=== PATIENT | male | born 1950 | race Caucasian/White ===

== ENCOUNTER 2024-07-26 13:48 | Emergency (ER) | payer MEDICARE, SELFPAY ==
[2024-07-26 13:58] VITALS: BP 108/56
[2024-07-26 14:27] LABS: % Basophils 0.2 % (0-2); % Eosinophils 7.1 % (0-6); % Immature Granulocytes 0.4 % (0-0.5); % Lymphocytes 25.6 % (20.5-51.1); % Monocytes 9.2 % (1.7-9.3); % Neutrophils 57.5 % (42.2-75.2); Absolute Eosinophils 0.6 10^3/uL (0-0.7); Absolute Lymphocytes 2.1 10^3/uL (1.2-3.4); Absolute Monocytes 0.8 10^3/uL (0.1-0.6); Absolute Neutrophils 4.8 10^3/uL (1.4-6.5); Hematocrit 38.7 % (39.0-52.0); Hemoglobin 13.2 g/dL (13.0-18.0); Mean Corp Hgb Conc. 34.1 g/dL (33.0-37.0); Mean Corpuscular Hgb 30.7 pg (27.0-31.0); Mean Platelet Volume 10.2 fL (7.4-10.4); Nucleated Red Blood Cells % 0 % (-); Platelet Count 218 10^3/uL (130-400); Red Cell Dist. Width 14.1 % (11.5-14.5); White Blood Cell Count 8.3 10^3/uL (4.8-10.8)
[2024-07-26 14:46] LABS: COVID-19 Antigen Negative (Negative)
[2024-07-26 14:47] LABS: ALT (SGPT) 24 U/L (0-50); AST (SGOT) 28 U/L (17-59); Albumin 4.3 g/dl (3.5-5.0); Alkaline Phosphatase 101 U/L (38-126); Blood Urea Nitrogen 26 mg/dl (9-20); Calcium 9.6 mg/dl (8.4-10.2); Carbon Dioxide 24 mmol/L (22-30); Chloride 100 mmol/L (98-107); Glucose 177 mg/dl (70-99); Potassium 4.2 mmol/L (3.5-5.1); Sodium 140 mmol/L (135-145); Total Bilirubin 1.4 mg/dl (0.2-1.3); Total Protein 6.5 g/dl (6.3-8.2); eGFR > 60.00
[2024-07-26 14:59] LABS: NT-proBNP 2010 pg/ml; Troponin I 0.034 ng/ml
[2024-07-26 16:59] VITALS: BP 126/79
[2024-07-26 18:00] VITALS: BP 132/70
--- NOTE | 2024-07-26 18:58 | ED.GENMED ---
History of Present Illness
General
Chief Complaint: Breathing Problem
Source: patient
Exam Limitations: none
Time Seen by Provider: 07/26/24 18:00
Nursing documentation reviewed up to this point in time: agreed with
History of Present Illness
History of Present Illness:
Patient is a 74-year-old male past medical history of CHF CAD, stent, hypertension hyperlipidemia reflux brought by son for evaluation of shortness of breath. Patient has a history of strokes(2 CVAs this summer) and has expressive aphasia. Son
reports patient has had a cough for the past couple days however no fevers no other illness. Today patient had a cough and seemed very short of breath while he was getting out of bed and after eating breakfast today. Son reports on the drive here
however patient and seem back to normal. Patient is unable to give history. Patient is in no acute distress and not hypoxic on my exam nontachypneic.
Patient does have a history of CHF and is on Lasix.
Review of Systems
Review of Systems
Allergies reviewed?: Yes
Unable to obtain full review of systems at this time due to: other (Patient with expressive aphasia)
Other source history: family
All Other Systems: ROS reviewed and negative except as documented in HPI and ROS
Constitutional: Reports no symptoms
Respiratory: Reports cough and trouble breathing (now resolved as per son )
ABD/GI: Reports no symptoms
: Reports no symptoms
Musculoskeletal: Reports no symptoms
Skin: Reports no symptoms
Neurological: Reports no symptoms
Psychiatric: Reports no symptoms
Phy Exam
General Physical Exam
General Presentation: no apparent distress
General age: appears stated age
General Skin: warm and dry
General Habitus: normal
General Mental: alert
General Hydration: appears well hydrated
Cardiovascular Exam
Cardiovascular Exam: regular rate/rhythm, no murmur and normal peripheral pulses
Pulmonary Exam
Pulmonary Exam: lungs clear and no respiratory distress
Neurological Exam
Neurological Exam: alert and other (Chronic expressive aphasia)
Musculoskeletal Exam
Musculoskeletal Exam: full ROM
Skin Exam
Skin Exam: normal color and warm/dry
Psychiatric Exam
Psychiatric Exam: normal mood/affect
Scores
Heart Failure Risk
Heart Failure Risk Score: Not Applicable
Course
Orders/Labs/Results
Orders:
Orders
07/26/24 14:00
Electrocardiogram (*1) Urgent
Reason for Study: Shortness of Breath
CR Chest - 2 Views Urgent
Comment:
Reason For Exam: SOB
07/26/24 14:01
EKG- Treatment ONCE
07/26/24 14:19
COVID-19 Antigen Urgent
Source: Nasal Swab
Complete Blood Count/With Diff Urgent
Comprehensive Metabolic Panel Urgent
NT-proBNP Urgent
Troponin I Urgent
07/26/24 20:08
Troponin I Urgent
07/26/24 20:47
Furosemide [Lasix] 40 mg PO NOW STA
Abnormal Lab Results
07/26/24 07/26/24
14:19 19:10
RBC 4.30 L 10^6/uL
(4.70-6.10)
Hct 38.7 L %
(39.0-52.0)
Absolute Monos (auto) 0.8 H 10^3/uL
(0.1-0.6)
Eosinophils % 7.1 H %
(0-6)
BUN 26 H mg/dl
(9-20)
Glucose 177 H mg/dl
(70-99)
Total Bilirubin 1.4 H mg/dl
(0.2-1.3)
POC Glucose 124 H mg/dl
(70-99)
07/26/24 14:19
07/26/24 14:19
Vital Signs
Initial and Last Documented VS:
Initial Vital Signs
Temp Pulse Resp BP Pulse Ox
98.3 F 78 20 108/56 97
07/26/24 13:58 07/26/24 13:58 07/26/24 13:58 07/26/24 13:58 07/26/24 13:58
Last Documented Vital Signs
Temp Pulse Resp BP Pulse Ox
98.3 F 77 14 157/74 95
07/26/24 13:58 07/26/24 19:55 07/26/24 19:45 07/26/24 19:00 07/26/24 19:55
MDM/Problems Addressed
MDM/Problems Addressed:
Patient is a 74-year-old male who presents to the ER for evaluation of shortness of breath as per son. Son reports patient has had cough for the past several days and today short of breath while getting out of bed and after eating breakfast. Son
reports symptoms seem to subside while driving to the hospital. Patient does have a history of CHF and is on Lasix. He denies any fever or chills. Son reports no lower extremity swelling.
Son is giving full history as patient does have expressive aphasia. Patient presents awake alert no acute distress lungs are clear nontachypneic nonhypoxic 95% on room air. No reports of fevers patient is afebrile here with a normal white count
stable hemoglobin normal creatinine. Trop is 0.034; chest x-ray without any acute pulmonary process.
Though son reports patient had no chest pain with expressive aphasia will repeat troponin and plan to d/c home.
2044: REpeat trop neg . pt in no distress and is well appearing. remains nonhypoxic and nontachypneic.
With history of CHF and proBNP elevated as discussed ED attending patient was given 1 dose of PO Lasix.
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
Chronic conditions affecting care:
chf cva (expressive aphasia)
*Radiology
Radiology exam reviewed: radiology read reviewed
*Pulse Oximetry
Patient hypoxic: no
*EKG
Interpreted by ED Provider?: Yes
Interpretation: abnormal
Heart Rate: 82
Ischemia: non-specific ST changes
*Critical Care Note
Total Time (30-74mins, 75-104mins- exclusive of procedures): Not Applicable
ED Attending Note
-
Portions of this chart may have been created with voice recognition software.� Occasional wrong word or��sound alike� substitutions may have occurred due to the inherent limitations of voice recognition software.
Discharge Plan
Departure
Patient Disposition: Home (Routine Discharge)
Date of Disposition: 07/26/24
Time of Disposition: 20:51
Patient with high blood pressure during this ER visit?: Yes
Condition: Fair
Covid-19: Not Applicable
Discharge Problem:
Dyspnea
Instructions: *PCP/Other Insurance Claims Processor Heart Failure Instructions
Prescriptions:
No Action
clopidogrel 75 MG tablet
75 mg PO DAILY
aspirin 81 MG tablet,delayed release (DR/EC)
81 mg PO HS
metformin 1,000 MG tablet
1,000 mg PO BID@0800,1700
Humulin R U-500 (Conc) Kwikpen 500 UNITS/ML insulin pen
20 - 40 units SC HS
Patient Comments:
SLIDING SCALE
Rx Instructions:
adjusted per blood sugar
Humulin R U-500 (Conc) Kwikpen 500 UNITS/ML insulin pen
70 - 80 units SC DAILY
Patient Comments:
SLIDING SCALE
Rx Instructions:
adjusts per blood sugar, takes later in the morning because he wakes up late
furosemide 40 mg tablet
80 mg PO DAILY
furosemide 40 mg tablet
40 mg PO DAILY@1600
carvedilol 12.5 mg tablet
12.5 mg PO BID
isosorbide mononitrate 30 mg tablet extended release 24 hr
15 mg PO HS
magnesium oxide 400 mg (241.3 mg magnesium) tablet
400 mg PO HS
nitroglycerin 0.4 mg tablet, sublingual
0.4 mg sublingual [id number] PRN (Reason: chest pain)
rosuvastatin 10 mg tablet
10 mg PO HS
lisinopril 20 MG tablet
10 mg PO HS
Farxiga 5 mg Tablet
5 mg PO DAILY
Referrals:
NONE,* [Family Provider] -
Activity Restrictions/Additional Instructions:
As discussed you were given 1 dose of your Lasix here in the ER. Please call cardiology tomorrow to make an appointment as soon as possible. return if any worsening of symptoms including worsening shortness of breath chest pain fever chills or any
further concerns.
Interventions
Interventions:
*Risk Screen - Suicide Last Done: 07/26/24 13:58
*General Assessment Last Done: 07/26/24 13:58
*Neglect/Abuse Screening Last Done: 07/26/24 13:58
ED- Cardiac Assessment Last Done: 07/26/24 18:31
ED- Pulmonary Assessment Last Done: 07/26/24 18:31
Discharge Date and Time
Print Language: AZERI
[2024-07-26 19:00] VITALS: BP 157/74
[2024-07-26 19:12] LABS: Glucose - Point of Care 124 mg/dl (70-99)
[2024-07-26 20:42] LABS: Troponin I 0.034 ng/ml
[2024-07-26] MEDS: LASIX 40 MG PO (20:59)
== END 2024-07-26 21:02 | disposition home or self-care (01) ==
LOC: EMR 13:48
PROVIDERS: Emergency Medicine; Nurse Practitioner; EMERGENCY PHYSICIAN Emergency Medicine
DX: R06.00 Dyspnea, unspecified (principal); I25.10 Atherosclerotic heart disease of native coronary artery without angina pectoris; I11.0 Hypertensive heart disease with heart failure; I50.9 Heart failure, unspecified; E78.5 Hyperlipidemia, unspecified; I69.320 Aphasia following cerebral infarction; K21.9 Gastro-esophageal reflux disease without esophagitis
CPT/HCPCS: 99283; 71046; 80053; 82962; 83880; 84484; 85025; 87811; 93005

== ENCOUNTER 2024-08-08 12:15 | Inpatient (IN) | payer MEDICARE, SELFPAY ==
[2024-08-08] VITALS (8 sets, daily range): BP systolic 118–132; BP diastolic 56–68; BMI 28.9
[2024-08-08 07:26] LABS: Glucose - Point of Care 126 mg/dl (70-99)
[2024-08-08 07:37] LABS: % Basophils 0.5 % (0-2); % Eosinophils 6.8 % (0-6); % Immature Granulocytes 0.3 % (0-0.5); % Lymphocytes 28.3 % (20.5-51.1); % Monocytes 9.5 % (1.7-9.3); % Neutrophils 54.6 % (42.2-75.2); Absolute Eosinophils 0.5 10^3/uL (0-0.7); Absolute Lymphocytes 2.2 10^3/uL (1.2-3.4); Absolute Monocytes 0.7 10^3/uL (0.1-0.6); Absolute Neutrophils 4.2 10^3/uL (1.4-6.5); Hematocrit 40.7 % (39.0-52.0); Hemoglobin 13.4 g/dL (13.0-18.0); Mean Corp Hgb Conc. 32.9 g/dL (33.0-37.0); Mean Corpuscular Hgb 29.8 pg (27.0-31.0); Mean Corpuscular Volume 90.6 fL (80.0-94.0); Mean Platelet Volume 10.3 fL (7.4-10.4); Nucleated Red Blood Cells % 0 % (-); Platelet Count 172 10^3/uL (130-400); Red Blood Cell Count 4.49 10^6/uL (4.70-6.10); Red Cell Dist. Width 13.9 % (11.5-14.5); White Blood Cell Count 7.7 10^3/uL (4.8-10.8)
[2024-08-08] MEDS: OFIRMEV 100 IV (07:49)
[2024-08-08] MEDS: ZOFRAN 4 MG IV (07:49)
--- NOTE | 2024-08-08 07:56 | ED.GENMED ---
History of Present Illness
General
Chief Complaint: Abdominal Pain
Source: patient
Exam Limitations: none
Time Seen by Provider: 08/08/24 07:34
Nursing documentation reviewed up to this point in time: agreed with
History of Present Illness
History of Present Illness:
74-year-old male coming from home with his son who is the primary disability manager, history of CAD status post CABG, CHF, insulin-dependent diabetes, no previous abdominal surgeries complaining of generalized abdominal discomfort over the last week.
Patient apparently had had some constipation so the son reached out to the primary care doctor about 4 days ago and was told to give him MiraLAX once a day which she has done. He has had some firmness to his abdomen. Yesterday he did move his
bowels but it did not seem to improve things. Patient did not eat much yesterday afternoon and then has been more fatigued than usual. He does have some baseline ambulatory dysfunction and memory loss but he seems more lethargic today. He is not
having any fevers or chills. Patient does admit to nausea but no vomiting. He also was here about 10 days ago for cough. Had a chest x-ray at that time which was negative. The son said the cough got better but then about 3 or 4 days ago came
back.
He has never had diverticulitis before. He has not had diarrhea
Past History
Past History
ED Past Medical History: CAD, CVA, GERD, HTN, Hypercholesterolemia and IDDM
ED Past Surgical History: Cardiac (CABG), Orthopedic and Tonsilectomy
Social History
Tobacco: Non-smoker
Alcohol: None
Personal: Single
Living: with family
Review of Systems
Review of Systems
Allergies reviewed?: Yes
All Other Systems: Not applicable
Phy Exam
Physical Exam
Physical Exam:
GENERAL: Alert , weak, generally ill, slightly pale
EYE: pupils equal and reactive
NECK: Supple
ENT: o/p clr, mmm.
CARDIAC: Regular rate and rhythm . Mild edema symmetric
LUNGS: Crackles bilateral bases, occasional cough, no respiratory distress
ABDOMEN: Soft, generalized tenderness, worse in the left lower quadrant, no guarding or rebound, no r/g, no cvat, normal bowel sounds
NEUROLOGICAL: Alert and oriented, no focal neuro deficits
SKIN: Warm and dry, skin intact.
MUSCULOSKELETAL: No edema, well perfused. neg claudy's sign
PSYCH: Normal and appropriate interaction.
Course
Orders/Labs/Results
Orders:
Orders
08/08/24 07:24
CMP [Comprehensive Metabolic Panel] Urgent
Complete Blood Count/With Diff Urgent
08/08/24 07:34
Urinalysis Reflex To Culture Urgent
Date Specimen was Collected: 08/08/24
Time Specimen was Collected: 10:21
Acetaminophen 1000MG/100Ml [Ofirmev] 1,000 mg in 100 ml IV ONCE
Acetaminophen IV Indication:: ED Narcotic Naive Pt-ONCE
Ondansetron Injectable [Zofran] 4 mg IV NOW STA
08/08/24 07:35
CT Abd/Pel (IV only)-DH only Urgent
Comment:
Reason For Exam: lower abd pain, poor appetite, lethargy
08/08/24 07:36
CR Chest - 2 Views Urgent
Comment:
Reason For Exam: cough
08/08/24 07:49
COVID-19 Antigen Urgent
Source: Nasal Swab
Lactic Acid Urgent
Lipase Urgent
08/08/24 08:06
0.9% Sodium Chloride 500 ml [Nss] 500 ml IV BOLUS
08/08/24 10:32
Azithromycin 500 mg/250 ml [Zithromax Infusion] 500 mg in 250 ml IV NOW
CefTRIAXone [Rocephin] 1,000 mg IV NOW STA
Abnormal Lab Results
08/08/24 08/08/24
07:22 07:24
RBC 4.49 L 10^6/uL
(4.70-6.10)
MCHC 32.9 L g/dL
(33.0-37.0)
Absolute Monos (auto) 0.7 H 10^3/uL
(0.1-0.6)
Monocytes % 9.5 H %
(1.7-9.3)
Eosinophils % 6.8 H %
(0-6)
BUN 27 H mg/dl
(9-20)
Glucose 129 H mg/dl
(70-99)
Total Bilirubin 1.8 H mg/dl
(0.2-1.3)
POC Glucose 126 H mg/dl
(70-99)
08/08/24 07:24
08/08/24 07:24
Vital Signs
Initial and Last Documented VS:
Initial Vital Signs
Temp Pulse Resp BP Pulse Ox
98.1 F 78 20 118/62 95
08/08/24 07:17 08/08/24 07:17 08/08/24 07:17 08/08/24 07:17 08/08/24 07:17
Last Documented Vital Signs
Temp Pulse Resp BP Pulse Ox
97.7 F 75 13 118/61 97
08/08/24 08:32 08/08/24 10:15 08/08/24 10:15 08/08/24 10:00 08/08/24 10:33
MDM/Problems Addressed
Differential Diagnosis Includes:
Pneumonia, diverticulitis, colitis, constipation, bowel obstruction
MDM/Problems Addressed:
74-year-old male coming from home, history of CVA with some mild memory issues, some chronic gait dysfunction, CAD status post CABG, insulin-dependent diabetes, who comes in with generalized abdominal pain over the last week or so. No relief with
MiraLAX despite moving his bowels. Patient feels nauseated and has had lack of appetite. He is also had a cough which was there about 2 weeks ago but then got better for period of time before returning. He has not had any known COVID exposures.
There is no fevers. On exam he has some crackles in his lungs with an occasional cough and generalized but worsening left lower quadrant abdominal tenderness. He looks pale and ill-appearing. Will check screening labs, chest x-ray and a CT scan
CT shows some stool bu tno significant findings
cxr indep reviewed is RLL infiltrate
pt desat on RA to 87% good pleth
will admit for iv abx
*Critical Care Note
Total Time (30-74mins, 75-104mins- exclusive of procedures): Not Applicable
ED Attending Note
-
Portions of this chart may have been created with voice recognition software.� Occasional wrong word or��sound alike� substitutions may have occurred due to the inherent limitations of voice recognition software.
Discharge Plan
Departure
Patient Disposition: Admit
Date of Disposition: 08/08/24
Time of Disposition: 10:27
Admit to: Med/Surg
Presentation/result/management discussed w/ accepting MD/DO: Hospitalist
Condition: Fair
Covid-19: Not Applicable
Discharge Problem:
Pneumonia, Acute constipation
Prescriptions:
No Action
aspirin 81 MG tablet,delayed release (DR/EC)
81 mg PO DAILY
metformin 1,000 MG tablet
1,000 mg PO BID@0800,1700
Humulin R U-500 (Conc) Kwikpen 500 UNITS/ML insulin pen
30 units SC HS
furosemide 40 mg tablet
40 mg PO DAILY
magnesium oxide 400 mg (241.3 mg magnesium) tablet
400 mg PO QPM
atorvastatin [Lipitor] 40 mg Tablet
40 mg PO QPM
tamsulosin [Flomax] 0.4 mg Capsule
0.4 mg PO DAILY
cyanocobalamin (vitamin B-12) 1,000 mcg Tablet
1,000 mcg PO DAILY
carvedilol [Coreg] 3.125 mg Tablet
3.125 mg PO BID
sertraline 25 mg Tablet
25 mg PO DAILY
gabapentin 100 mg Capsule
100 mg PO BID
dapagliflozin propanediol [Farxiga] 10 mg Tablet
10 mg PO DAILY
Brilinta 60 mg Tablet
60 mg PO BID
Referrals:
Monalisa Solis, DO [Family Provider] -
Interventions
Interventions:
*Risk Screen - Suicide Last Done: 08/08/24 07:36
*General Assessment Last Done: 08/08/24 07:36
*Neglect/Abuse Screening Last Done: 08/08/24 07:36
*ED COVID-19 Vaccine History Last Done: 08/08/24 09:02
XT-Feyyec-Pjjzoitkks Assessment Last Done: 08/08/24 07:35
Discharge Date and Time
Print Language: ERITREAN
[2024-08-08 08:00] LABS: ALT (SGPT) 22 U/L (0-50); AST (SGOT) 25 U/L (17-59); Albumin 4.1 g/dl (3.5-5.0); Alkaline Phosphatase 96 U/L (38-126); Blood Urea Nitrogen 27 mg/dl (9-20); Calcium 9.4 mg/dl (8.4-10.2); Carbon Dioxide 28 mmol/L (22-30); Chloride 101 mmol/L (98-107); Glucose 129 mg/dl (70-99); Sodium 142 mmol/L (135-145); Total Bilirubin 1.8 mg/dl (0.2-1.3); Total Protein 6.3 g/dl (6.3-8.2); eGFR > 60.00
[2024-08-08] MEDS: NSS 500 IV (08:15)
[2024-08-08 08:20] LABS: COVID-19 Antigen Negative (Negative)
[2024-08-08 08:21] LABS: Lipase 91 U/L (23-300)
[2024-08-08 08:22] LABS: Lactic Acid 1.3 mmol/L (0.7-2.0)
[2024-08-08] MEDS: ROCEPHIN 1000 MG IV (10:47)
[2024-08-08] MEDS: ZITHROMAX INFUSION 250 IV (10:49)
--- NOTE | 2024-08-08 11:43 | HPS.HSE ---
Family Physician
-
Family Physician: Monalisa Solis DO
Chief Complaint
-
abdomen pain, hypoxemia
History of Present Illness
74-year-old male with HFpEF, CAD s/p CABG, IDDM, HTN, HLD, GERD, H/O CVA (April 2024) that is presenting to the ED today with a complaint of generalized abdominal pain over the last week.
The patient's son was at the bedside and provides supplemental history. He is his mother's primary senior java software developer. The patient had constipation recently, the son had reached out to primary care provider about 4 days prior to arrival and he was
recommended to start MiraLAX daily which was performed. His son states yesterday he did move his bowels but he did not see any improvement to the symptoms. Patient was not eating much yesterday, seems more forgetful and fatigued than usual.
Denies any known fevers or chills. Was recently in the ED for cough, was discharged and improved however 3 days ago his cough recurred. X-ray at that time was unremarkable.
Upon arrival to the ED AFVSS. He was placed on 1 L O2 for comfort, SpO2 97 to 98%. ED labs showed total bilirubin 1.8 but were otherwise unremarkable. No leukocytosis was noted. COVID test was negative. CT A/P with IV contrast showed no acute
abnormalities, mild diffuse stool burden within the colon. Chest x-ray showed moderate right basilar airspace opacity concerning for consolidation. He was started on IV Septra azithromycin empirically.
Medical History
Past Medical History
Past Medical History: Reports CAD, CHF, GERD, HTN, Hypercholesterolemia and IDDM
Past Surgical History: Reports Cardiac and Orthopedic
Social History
Tobacco: Non-smoker
Alcohol: None
Drug: None
Living: With Family
Family History
Family History: Not pertinent
Allergies / Home Medications
Allergies reflects when Allergies were last updated in [facility].
Home Medications with original date entered in [facility]
Allergy/Medication List:
Allergies
Allergy/AdvReac Type Severity Reaction Status Date / Time
No Known Allergies Allergy Verified 08/08/24 07:18
Home Medications
aspirin 81 mg tablet,delayed release 81 mg PO DAILY Blood clot prevention/tx 07/13/16
metformin 1,000 mg tablet 1,000 mg PO BID@0800,1700 Diabetes 07/13/16
insulin regular hum U-500 conc 500 unit/mL(3 mL) subcut pen (Humulin R U-500 (Conc) Insulin Kwikpen) 30 units SC HS Diabetes 02/15/19
furosemide 40 mg tablet 40 mg PO DAILY Fluid retention/Swelling 03/05/23
magnesium oxide 400 mg (241.3 mg magnesium) tablet 400 mg PO QPM Supplement 03/05/23
atorvastatin 40 mg tablet (Lipitor) 40 mg PO QPM 08/08/24
carvedilol 3.125 mg tablet (Coreg) 3.125 mg PO BID 08/08/24
cyanocobalamin (vitamin B-12) 1,000 mcg tablet 1,000 mcg PO DAILY 08/08/24
dapagliflozin propanediol 10 mg tablet (Farxiga) 10 mg PO DAILY 08/08/24
gabapentin 100 mg capsule 100 mg PO BID 08/08/24
sertraline 25 mg tablet 25 mg PO DAILY 08/08/24
tamsulosin 0.4 mg capsule (Flomax) 0.4 mg PO DAILY 08/08/24
ticagrelor 60 mg tablet (Brilinta) 60 mg PO BID 08/08/24
Review of Systems
-
A 12 point ROS was completed and negative except as noted: Yes
Constitutional: Reports See HPI and Fatigue
EENT: Reports No Symptoms
Respiratory: Reports See HPI and Cough
Cardiac: Reports No Symptoms
Abdomen/GI: Reports See HPI, Abdominal Pain and Nausea; Denies Vomiting
: Reports No Symptoms
Musculoskeletal: Reports No Symptoms
Skin: Reports No Symptoms
Neurological: Reports No Symptoms
Endocrine: Reports No Symptoms
Hematologic/Lymphatic: Reports No Symptoms
Psych: Reports No Symptoms
Physical Exam
Vital Signs
Vital Signs
Temp Pulse Resp BP Pulse Ox
97.7 F 75 13 118/61 97
08/08/24 08:32 08/08/24 10:15 08/08/24 10:15 08/08/24 10:00 08/08/24 10:33
Physical Exam
General: Well Nourished, No Apparent Distress and Comfortable; No Respiratory Distress
HEENT: NormoCephalic, Anicteric, Moist mucous membranes, Atraumatic and Good Dentition; No Nodules
Respiratory: Rhonchi, Crackles (Right base), Non Labored Respirations and Clear to Percussion; No Wheezes, Rales or Accessory Resp Muscle Use
Cardiac: S1/S2 and Regular Rhythm; No Murmur, Rub, Gallop, Peripheral Edema, JVD or Carotid Bruits
GI: Soft, Non Tender, Non Distended, Normal Bowel Sounds and No Hepatosplenomegaly
Musculoskeletal: No Clubbing, No Cyanosis, No Edema and Other (No gross deformities)
Skin: Warm and Dry; No Rash or Jaundice
Neuro: AO x 3, Nonfocal/grossly intact and Cranial Nerves Intact
Laboratory Results
-
08/08/24 07:24
08/08/24 07:24
Laboratory Results
Lactic Acid 1.3 mmol/L (0.7-2.0) 08/08/24 07:49
Total Bilirubin 1.8 mg/dl (0.2-1.3) H 08/08/24 07:24
AST 25 U/L (17-59) 08/08/24 07:24
ALT 22 U/L (0-50) 08/08/24 07:24
Alkaline Phosphatase 96 U/L (38-126) 08/08/24 07:24
Lipase 91 U/L (23-300) 08/08/24 07:49
Data Reviewed
-
Diagnostic Radiology: Image Personally Visualized and interpreted, Report Reviewed by me, Discussed with Patient and Discussed with Family
CT Scan: Report Reviewed by me, Discussed with Patient and Discussed with Family
Lab Data: Labs Reviewed by me, Discussed with Patient and Discussed with Family
Impression/Plan
-
#Suspected community-acquired pneumonia
#Hypoxemia
-Presented with SpO2 87%, CXR showing signs of right basilar pneumonia
-No leukocytosis or fevers reported, no recorded while in the ED
-Cannot rule out that this is not infectious process such as aspiration
-Will started on empiric IV antibiotics with ceftriaxone and azithromycin
-Exam does show rhonchorous lungs, possible crackles at right lung base
-Currently saturating in the high 90s on 1 L of supplemental oxygen
-Question aspiration
Plan
-Continue with empiric antibiotics for now
-Add on procalcitonin level to ED labs, low threshold to DC
-Will monitor respiratory status closely, SpO2 goal >90%
-Order sputum cultures, defer blood cultures due to lack of SIRS
-Trend CBC and temperature curve
-Speech and swallow eval
#Abdominal pain
-Unclear etiology, may be related to constipation versus gallstone etiology
-CT scan without any acute findings, did show signs of cholelithiasis
-On exam no signs of acute abdomen, seems soft and nontender
-Will monitor closely, serial abdomen exams
-Start standing bowel regimen for constipation
#Chronic HFpEF
-Per history, no TTE on record; GDMT with SGLT2i, not currently on MRA for unclear reason
-Loop diuretic regimen of 40 mg Lasix daily; also on carvedilol for afterload reduction
-Appears euvolemic at this time on current regimen
#CAD s/p CABG
#HLD
-Home medications include carvedilol, high intensity statin, DAPT with aspirin and Brilinta
-Also currently on SGLT2 inhibitor which has benefits and CAD
-No signs of active coronary ischemia at this time
#Insulin-dependent type 2 diabetes this mellitus
-Last hemoglobin A1c 7.2%; C/B diabetic neuropathy
-Current regimen includes Humulin, metformin, gabapentin for neuropathy
-Will hold metformin, transition to sliding scale with Accu-Cheks
-He blood glucose goal 160-200 while in the hospital
#Hypertension
-No known hypertensive systemic disease
-Home medications include carvedilol as first-line and agent
-Blood pressure currently well-controlled
#Anxiety/depression
-Stable on current sertraline read
#BPH
-Stable on tamsulosin 0.4 mg
#vitamin B12 deficient
-Outpatient records show chronic vitamin B12 oral supplement
-Possibly related to chronic metformin use
DVT prophylaxis: Lovenox
Diet: Regular
CODE STATUS: Full code
Disposition: Admit to Med/Surg
I will be admitting Arnu Gilbert to Med/Surg for suspected community-acquired pneumonia with hypoxemia. He is at increased risk for morbidity and mortality due to respiratory compromise from pneumonia. He will require intensive monitoring of his
respiratory status, treatment with IV antibiotics, and a titration off of supplemental oxygen. I have spoken with the ED provider in regards to this patient's care.
[2024-08-08 13:50] LABS: Glucose - Point of Care 106 mg/dl (70-99)
[2024-08-08] MEDS: NSS 1000 IV (13:54)
--- NOTE | 2024-08-08 14:00 | PTOTSP ---
Speech Language Pathology
Pt seen for clinical bedside swallow evaluation. Per son, pt has participated in speech therapy in acute care level, acute rehab level, and home health. Pt recently discharged from home health with plan to bridge to outpatient. P.O. trials of
puree, regular solids, and thin liquids provided. Adequate mastication, bolus formation, and A-P transit noted with no oral residue. Slight wet vocal quality noted at baseline with same noted with P.O. trials. Question whether related to wet
cough reported by son or whether related to aspiration. Pt's son stated he never had a VSE completed as far as he knows. Current CXR shows RLL PNA.
Recommend:
(1) VSE
(2) Continue regular solids/thin liquids pending VSE
(3) Aspiration precautions: sit upright, slow rate
(4) Meds as tolerated
(5) [employer] GOLF COACH to continue to follow
[2024-08-08 14:47] LABS: Procalcitonin < 0.05 ng/ml (0.0-0.25)
[2024-08-08 16:40] LABS: Glucose - Point of Care 110 mg/dl (70-99)
[2024-08-08] MEDS: NOVOLOG FLEXPEN-MODERATE RESISTANCE SC (16:57)
[2024-08-08 17:29] LABS: Troponin I 0.036 ng/ml
[2024-08-08] MEDS: LIPITOR 40 MG PO (17:46)
[2024-08-08] MEDS: MAGNESIUM OXIDE 500 MG PO (17:46)
[2024-08-08] MEDS: LOVENOX 40 MG SC (17:46)
[2024-08-08] MEDS: TYLENOL 650 MG PO (20:39)
[2024-08-08] MEDS: COREG 3.125 MG PO (20:40)
[2024-08-08] MEDS: NEURONTIN 100 MG PO (20:40)
[2024-08-08] MEDS: BRILINTA 60 MG PO (20:40)
[2024-08-08 21:03] LABS: Glucose - Point of Care 157 mg/dl (70-99)
[2024-08-08] MEDS: HUMULIN R U-500 (CONCENTRATED) 30 UNITS SC (21:51)
[2024-08-08 22:02] LABS: Troponin I 0.039 ng/ml
[2024-08-09] VITALS (8 sets, daily range): BP systolic 112–137; BP diastolic 57–69; PULSE 70–71; O2SAT 97; BMI 29.0
[2024-08-09 03:02] LABS: Glucose - Point of Care 77 mg/dl (70-99)
--- NOTE | 2024-08-09 03:06 | PTCARENOTE ---
Pt personal glucose monitor was going off, stated his glucose level was low. Pt felt his glucose was low and requested to get checked. Pt glucose was 77 and orange juice given. Pt did received 30 units of Humulin R U-500.
--- NOTE | 2024-08-09 03:08 | DOWNTIME ---
There was a [employer] [employer] Client Dialysis Biomed Technician Downtime on 08/09/2024 from 0100 to 08/09/2024 at 0300. Downtime documentation of patient's care, including medication administrations, has been reconciled in the electronic record per guidelines. Refer to the
patient's paper chart under the miscellaneous tab to see printed paper medication records and downtime forms.
[2024-08-09] MEDS: TYLENOL 650 MG PO (05:39)
[2024-08-09 06:02] LABS: % Basophils 0.5 % (0-2); % Eosinophils 8.8 % (0-6); % Immature Granulocytes 0.2 % (0-0.5); % Monocytes 11.5 % (1.7-9.3); Absolute Eosinophils 0.5 10^3/uL (0-0.7); Absolute Monocytes 0.7 10^3/uL (0.1-0.6); Absolute Neutrophils 2.9 10^3/uL (1.4-6.5); Hematocrit 36.3 % (39.0-52.0); Mean Corp Hgb Conc. 33.1 g/dL (33.0-37.0); Mean Corpuscular Hgb 29.7 pg (27.0-31.0); Mean Corpuscular Volume 89.9 fL (80.0-94.0); Mean Platelet Volume 10.4 fL (7.4-10.4); Nucleated Red Blood Cells % 0 % (-); Platelet Count 160 10^3/uL (130-400); Red Blood Cell Count 4.04 10^6/uL (4.70-6.10); Red Cell Dist. Width 13.7 % (11.5-14.5); White Blood Cell Count 6.2 10^3/uL (4.8-10.8)
[2024-08-09 06:15] LABS: Troponin I 0.051 ng/ml
[2024-08-09 06:18] LABS: ALT (SGPT) 20 U/L (0-50); AST (SGOT) 23 U/L (17-59); Albumin 3.6 g/dl (3.5-5.0); Alkaline Phosphatase 84 U/L (38-126); Blood Urea Nitrogen 22 mg/dl (9-20); Calcium 8.8 mg/dl (8.4-10.2); Carbon Dioxide 27 mmol/L (22-30); Chloride 105 mmol/L (98-107); Direct Bilirubin 0.2 mg/dl (0.0-0.4); Estimated Creatinine Clearance 74 ml/min; Glucose 92 mg/dl (70-99); Magnesium 2.4 mg/dl (1.6-2.3); Sodium 144 mmol/L (135-145); Total Protein 5.7 g/dl (6.3-8.2); eGFR > 60.00
[2024-08-09 07:51] LABS: Glucose - Point of Care 106 mg/dl (70-99)
[2024-08-09] MEDS: NOVOLOG FLEXPEN-MODERATE RESISTANCE SC ×2 (08:30→17:50)
[2024-08-09] MEDS: ZITHROMAX 500 MG PO (08:57)
[2024-08-09] MEDS: FLOMAX 0.4 MG PO (08:59)
[2024-08-09] MEDS: BRILINTA 60 MG PO ×2 (08:59→19:19)
[2024-08-09] MEDS: VITAMIN B-12 1000 MCG PO (08:59)
[2024-08-09] MEDS: FARXIGA 10 MG PO (08:59)
[2024-08-09] MEDS: SENOKOT-S 1 TABLET PO (08:59)
[2024-08-09] MEDS: ZOLOFT 25 MG PO (08:59)
[2024-08-09] MEDS: LASIX 40 MG PO (09:00)
[2024-08-09] MEDS: COREG 3.125 MG PO ×2 (09:00→19:19)
[2024-08-09] MEDS: NEURONTIN 100 MG PO ×2 (09:00→19:19)
[2024-08-09] MEDS: ASPIR LOW (ENTERIC COATED) 81 MG PO (09:00)
--- NOTE | 2024-08-09 09:00 | PTOTSP ---
Video Swallow Study
Summary: Oral/pharyngeal stages of swallowing within functional limits. No aspiration occurred. Esophageal sweep concerning for esophageal dysphagia (i.e., upper esophageal retention that did not clear with a liquid wash). Patient with known
history of GERD. Consider GI consult.
Recommend:
1. Regular, Thin
2. Medications - as best tolerated
3. Alternate solids/liquids to assist with esophageal clearance, remain upright for at least 30 minutes after PO intake as a reflux precaution
4. GI consult
No further dysphagia therapy with an [employer] warranted. Please reconsult as appropriate.
--- NOTE | 2024-08-09 09:27 | WOUNDNOTE ---
WON RN note: Patient admitted with Pneumonia and acute constipation.
See H&P for complete history. Lives with son.
PMH: IDDM,CHF,CAD,CVA, Pilonidal cyst removal,CABG-stent, HTN,Cellulitis, R hallux amp. by Dr. Rodriguez, neuropathy.
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 Now R toe site is healed, heels are intact. Asked to see patient for stage 2 PI on sacrum. Patient stood up
with assist of RN Jimy, patient used walker. Sacrum is intact, has divot in gluteal cleft from old pilonidal cyst removal, patient confirmed. Site is blanchable red with mild MASD, barrier cream applied by nurse.
Appetite: Good.
Pressure redistribution devices in place: Accumax, patient sitting in chair, air cushion given to patient.
Plan: Recommend continue barrier cream to gluteal cleft. Applied adhesive foams to heels to protect. Air cushion when sitting, patient can take upon discharge. Updated nurse, care plan and will follow as needed.
Note to case management of equipment requested for discharge: None.
[2024-08-09 11:53] LABS: Glucose - Point of Care 179 mg/dl (70-99)
--- NOTE | 2024-08-09 12:10 | W.PN.HOSP.TC ---
Today's Communication/Plan
-
Discontinue antibiotics
Order viral respiratory panel
Trend CBC and temperature curve
Trend respiratory status
Assessment / Plan
Assessment / Plan
#Hypoxemia -- Differentials include aspiration pneumonitis, acute bronchitis, less likely bacterial pneumonia
-Presented with SpO2 87%, CXR showing signs of right basilar pneumonia; No leukocytosis or fevers reported, procalcitonin negative
-Was started on empiric community-acquired pneumonia regimen with ceftriaxone and azithromycin
-On exam he does have very rhonchorous findings throughout lung cobos
-VSE did not show any obvious signs of significant aspiration events
-Was initially hypoxemic on arrival, saturating in the high 90s today
-Currently on 1 L of supplemental oxygen for comfort
Plan
-Will discontinue antibiotics for now and monitor clinically
-Order viral respiratory assess for etiology of possible bronchitis
-Sputum culture ordered, yet to be obtained, results are pending
-Will monitor respiratory status closely, SpO2 goal >90%
-Trend CBC and temperature curve
-Aspiration precaution
#Elevated serum troponin
-Yesterday he had intermittent/transient chest pain with a mildly elevated troponin x 3, flat trend
-Suspect that this is a type II demand ischemic event in the context of his hypoxemia and possible infection
-Troponin trend was not consistent with ACS; ECG without any new ischemic findings, similar to previous scans
-Will continue to monitor clinically, continue with home CAD regimen as below
#Abdominal pain
-CT scan without any acute findings, did show signs of cholelithiasis
-On exam no signs of acute abdomen, seems soft and nontender
-As of this morning has no complaints of abdominal pain
-Remains on bowel regimen empirically
#Chronic HFpEF
-Per history, no TTE on record; GDMT with SGLT2i, not currently on MRA for unclear reason
-Loop diuretic regimen of 40 mg Lasix daily; also on carvedilol for afterload reduction
-Appears euvolemic at this time on current regimen
#CAD s/p CABG
#HLD
-Home medications include carvedilol, high intensity statin, DAPT with aspirin and Brilinta
-Also currently on SGLT2 inhibitor which has benefits and CAD
-No signs of active coronary ischemia at this time
#Insulin-dependent type 2 diabetes this mellitus
-Last hemoglobin A1c 7.2%; C/B diabetic neuropathy
-Current regimen includes Humulin, metformin, gabapentin for neuropathy
-Will hold metformin, transition to sliding scale with Accu-Cheks
-He blood glucose goal 160-200 while in the hospital
#Hypertension
-No known hypertensive systemic disease
-Home medications include carvedilol as first-line and agent
-Blood pressure currently well-controlled
#Anxiety/depression
-Stable on current sertraline read
#BPH
-Stable on tamsulosin 0.4 mg
#vitamin B12 deficient
-Outpatient records show chronic vitamin B12 oral supplement
-Possibly related to chronic metformin use
DVT prophylaxis: Lovenox
Diet: Regular
CODE STATUS: DNR per patient's son (primary circular knife cutter machine)
Anticipated Discharge: 24 - 48 hours
Subjective/Interval History
-
Date of Service: August 09, 2024
Seen and examined at the bedside. AFVSS this morning.
Yesterday afternoon he did complain of some chest pain that was transient/intermittent. Slightly elevated troponin though trended not consistent with ACS. ECGs without acute ischemic findings. Suspect that this is a type II demand event in the
context of his bacterial pneumonia versus aspiration with hypoxemia
Video swallow exam today did show some upper esophageal residue that did not clear with a liquid wash, recommended reflux precautions
History is limited from his expressive aphasia secondary to CVAs
Objective Data
-
Labs:
Laboratory Results
08/09/24
05:45
WBC 6.2
Hgb 12.0 L
Hct 36.3 L
Plt Count 160
Sodium 144
Potassium 4.0
Chloride 105
Carbon Dioxide 27
BUN 22 H
Creatinine 0.9
Glucose 92
Calcium 8.8
Total Bilirubin 1.0
AST 23
ALT 20
Alkaline Phosphatase 84
Vital Signs:
Vital Signs
Temp Pulse Resp BP Pulse Ox
99.5 F 66 12 112/57 97
08/09/24 11:17 08/09/24 11:17 08/09/24 11:17 08/09/24 11:17 08/09/24 11:27
I&O
08/08/24 08/09/24 08/10/24
06:59 06:59 06:59
Intake Total 120 / 120
Balance 120 / 120
Review of Systems
-
Unable to obtain full review of systems at this time due to: Other (Expressive aphasia)
Physical Exam
-
General: Well Nourished, No Apparent Distress, Comfortable and Other (Slight toxic appearance)
Respiratory: Clear to Auscultation, Rhonchi and Non Labored Respirations; Negative Wheezes, Rales or Accessory Resp Muscle Use
Cardiac: Regular Rhythm and S1/S2; Negative Murmur, Rub, JVD or Gallop
GI: Soft, Nontender, Nondistended and Normal Bowel Sounds
Musculoskeletal: No Clubbing, No Cyanosis and No Edema
Skin: Warm, Dry and Normal Turgor; Negative Rash
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
Psych: Calm
Data Reviewed
-
Labs: Labs Reviewed by me
[2024-08-09] MEDS: NOVOLOG FLEXPEN-MODERATE RESISTANCE 1 UNITS SC (12:58)
--- NOTE | 2024-08-09 16:27 | CM ---
Alert awake forgetful patient who lives with his son Andreas who lives in a 1 story home with ramp to enter. He is assisted in all activities of daily living.
Offered VN they declined . Requested Palliative care . Request sent to .SPoke with Sister in law Dawn at bedside [phone].
VN hx /CESAR hx
He uses a walker
Pharmacy [facility]
PCP DR Monalisa Solis
PLAN Home with Palliative care
[2024-08-09 16:47] LABS: Glucose - Point of Care 140 mg/dl (70-99)
[2024-08-09] MEDS: PROTONIX 40 MG PO (17:49)
[2024-08-09] MEDS: LIPITOR 40 MG PO (17:50)
[2024-08-09] MEDS: LOVENOX 40 MG SC (17:50)
[2024-08-09] MEDS: MAGNESIUM OXIDE 500 MG PO (17:50)
[2024-08-09 21:30] LABS: Glucose - Point of Care 125 mg/dl (70-99)
[2024-08-09] MEDS: HUMULIN R U-500 (CONCENTRATED) 20 UNITS SC (21:34)
[2024-08-10] VITALS (7 sets, daily range): BP systolic 111–137; BP diastolic 50–73; BMI 29.2; BMI 29.7
[2024-08-10 05:59] LABS: Glucose - Point of Care 104 mg/dl (70-99)
[2024-08-10 06:27] LABS: % Basophils 0.4 % (0-2); % Eosinophils 7.9 % (0-6); % Immature Granulocytes 0.1 % (0-0.5); % Lymphocytes 33.9 % (20.5-51.1); % Monocytes 12.8 % (1.7-9.3); % Neutrophils 44.9 % (42.2-75.2); Absolute Eosinophils 0.5 10^3/uL (0-0.7); Absolute Lymphocytes 2.3 10^3/uL (1.2-3.4); Absolute Monocytes 0.9 10^3/uL (0.1-0.6); Hematocrit 37.1 % (39.0-52.0); Hemoglobin 12.3 g/dL (13.0-18.0); Mean Corp Hgb Conc. 33.2 g/dL (33.0-37.0); Mean Corpuscular Hgb 29.9 pg (27.0-31.0); Mean Platelet Volume 10.7 fL (7.4-10.4); Nucleated Red Blood Cells % 0 % (-); Platelet Count 169 10^3/uL (130-400); Red Blood Cell Count 4.12 10^6/uL (4.70-6.10); Red Cell Dist. Width 13.7 % (11.5-14.5); White Blood Cell Count 6.7 10^3/uL (4.8-10.8)
[2024-08-10 06:44] LABS: Blood Urea Nitrogen 19 mg/dl (9-20); Carbon Dioxide 28 mmol/L (22-30); Chloride 102 mmol/L (98-107); Estimated Creatinine Clearance 74 ml/min; Glucose 95 mg/dl (70-99); Potassium 3.9 mmol/L (3.5-5.1); Sodium 143 mmol/L (135-145); eGFR > 60.00
[2024-08-10] MEDS: ASPIR LOW (ENTERIC COATED) 81 MG PO (08:13)
[2024-08-10] MEDS: ZOLOFT 25 MG PO (08:14)
[2024-08-10] MEDS: VITAMIN B-12 1000 MCG PO (08:14)
[2024-08-10] MEDS: PROTONIX 40 MG PO (08:14)
[2024-08-10] MEDS: FARXIGA 10 MG PO (08:14)
[2024-08-10] MEDS: LASIX 40 MG PO (08:14)
[2024-08-10] MEDS: BRILINTA 60 MG PO ×2 (08:14→21:17)
[2024-08-10] MEDS: SENOKOT-S 1 TABLET PO ×2 (08:14→12:38)
[2024-08-10] MEDS: FLOMAX 0.4 MG PO (08:14)
[2024-08-10] MEDS: COREG 3.125 MG PO ×2 (08:15→21:17)
[2024-08-10] MEDS: NEURONTIN 100 MG PO ×2 (08:15→21:17)
[2024-08-10] MEDS: NOVOLOG FLEXPEN-MODERATE RESISTANCE SC ×2 (08:17→11:50)
--- NOTE | 2024-08-10 10:27 | W.CON.PAL ---
Consultation
-
Date/Time Consultation Requested: 08/09
Date/Time Consultation Performed: 08/10
Requesting Provider: Galileo Connor
Performing Provider: Briseida LAW
Reason for Consult: Goals of Care Discussion
Primary Diagnosis: hypoxia r/o PNA
Related Diagnosis: CVA 04/2024, HFpEF
Consult Requested By: Patient's Family and Patient's Physician
Reason for Admission
Illness Course/HPI
Patient is a 74 year old M with PMH of HFpEF, CAD s/p CABG, IDDM, HTN, HLD, GERD, recent CVA (April 2024) with expressive aphasia admitted with compliants of generalized abdominal pain.
Per chart review, patients son reached out to PCP 4 days prior to admission with concerns for constipation. Started on miralax, +BM but no improvement in symptoms so presented to ER for eval. Of note, recent ED visit for cough and sent home.
Upon arrival was hypoxic to the 80s, started on 1-2L 02 with improvement. CXR with R basilar airspace opacity c/f possible PNA r/o aspiration.Started on antibiotics. Video swallow completed and WNL. Labs unremarkable. COVID negative. CT AP with no
abnormalities, mild stool burden.
Low suspicion for PNA, antibiotics stopped. Respiratory panel pending. Respiratory status stable.
Lives at home with his son who is his primary caregiver. Family requesting palliative care.
Pain & Symptom Assessment
[place] Symptom Scale 0=none, 10=worst
Pain: 0
Tired: 0
Drowsy: 0
Nausea: 0
Appetite: 0
Shortness of Breath: 0
Objective Data
-
Objective Data:
Vital Signs
Temp Pulse Resp BP Pulse Ox
98.4 F 77 12 136/67 96
08/10/24 07:00 08/10/24 08:15 08/10/24 07:00 08/10/24 08:14 08/10/24 07:00
Laboratory Results
08/10/24 05:54
08/10/24 05:54
Total Protein 5.7 g/dl (6.3-8.2) L 08/09/24 05:45
Albumin 3.6 g/dl (3.5-5.0) 08/09/24 05:45
Urine Color Cancelled 08/08/24 10:22
Urine Clarity Cancelled 08/08/24 10:22
Urine pH Cancelled 08/08/24 10:22
Ur Specific [place] Cancelled 08/08/24 10:22
Urine Ketones Cancelled 08/08/24 10:22
Urine Bilirubin Cancelled 08/08/24 10:22
Palliative Performance Scale
Palliative Performance Scale:
PPS Level Ambulation Activity & Evidence of Disease Self Care Intake Conscious Level
100% Full Normal Activity & Work; Full Intake Full
No Evidence of Disease
90% Full Normal Activity & Work; Full Normal Full
Some Evidence of Disease
80% Full Normal Activity with Effort Full Normal or Full
Some Evidence of Disease Reduced
70% Reduced Unable Normal Job/Work Full Normal or Full
Significant Disease Reduced
60% Reduced Unable Hobby/Housework Occasional Normal or Full or Confusion
Significant Disease Assistance Reduced
50% Mainly Sit/Lie Unable to do Any Work Considerable Normal or Full or Confusion
Extensive Disease Assistance Req'd Reduced
40% Mainly in Bed Unable to do Most Activity Mainly Assistance Normal or Full or Drowsy;
Extensive Disease Reduced +/- Confusion
30% Totally Bed Unable to do Any Activity Total Care Normal or Full or Drowsy;
Bound Extensive Disease Reduced +/- Confusion
20% Totally Bed Bound Unable to do Any Activity Total Care Minimal to Full or Drowsy;
Extensive Disease Sips +/- Confusion
10% Totally Bed Bound Unable to do Any Activity Total Care Mouth Care Drowsy or Coma;
Extensive Disease Only +/- Confusion
0%
PPS Score Level: 60%
Physical Exam
-
General: Well Developed, No Apparent Distress and Comfortable
HEENT: Normocephalic
Respiratory: Rhonchi
Cardiac: Regular Rhythm
Peripheral Vascular: No Edema
GI: Soft and Distended
Skin: Warm and Dry
Neuro: Awake, Alert and Other (expressive aphasia )
Psych: Calm
Assessment / Plan
-
Assessment/Plan:
74 year old M with history of CVA April 2024 with expressive aphasia, HFpEF admitted with abdominal pain 2/2 constipation and found to be hypoxic. R/o PNA vs bronchitis vs aspiration pneumonitis.
Encounter for Palliative Care
- seen at bedside with son Andreas present. Discussed role of PCS. They are requesting outpatient palliative follow up for extra support.
- lives with son Andreas. Andreas works during the day. Patients sister Nereyda helps with patient during the day as well as another family member but having health issues. Discussed with son about private pay caregivers. CM to provide list. Will be
discharged with VN as well.
- prior to stroke patient independent, ambulating without assist device. Now using a walker for assistance and needs assistance with ADLs at home.
- will touch base with son next week to schedule in home follow up appointment.
- DNR/DNI
Discussed with CM and primary attending.
Care Reviewed
Data Reviewed
Chest X ray: Image Reviewed
Echocardiogram: Image Reviewed
Radiology procedure: Image Reviewed
Medical Tests: I reviewed
Reviewed with: Patient and Family
[2024-08-10 11:34] LABS: Glucose - Point of Care 146 mg/dl (70-99)
--- NOTE | 2024-08-10 12:09 | W.PN.HOSP.TC ---
Today's Communication/Plan
-
Monitor clinically off of antibiotics
Give dose of MiraLAX and senna now
Possible discharge tomorrow
Assessment / Plan
Assessment / Plan
#Hypoxemia -- Differentials include aspiration pneumonitis, acute bronchitis, less likely bacterial pneumonia
-Presented with SpO2 87%, CXR showing signs of right basilar pneumonia; No leukocytosis or fevers reported, procalcitonin negative
-Was started on empiric community-acquired pneumonia regimen with ceftriaxone and azithromycin
-On exam he does have very rhonchorous findings throughout lung cobos
-VSE did not show any obvious signs of significant aspiration events
-Was initially hypoxemic on arrival, saturating in the high 90s today
-Was started on antibiotics for short course, discontinued on 08/09
-Currently on room air with SpO2 in the mid to high 90s
-Monitor clinically, aspiration precautions
-Consider repeat chest x-ray tomorrow
#Elevated serum troponin
-Yesterday he had intermittent/transient chest pain with a mildly elevated troponin x 3, flat trend
-Suspect that this is a type II demand ischemic event in the context of his hypoxemia and possible infection
-Troponin trend was not consistent with ACS; ECG without any new ischemic findings, similar to previous scans
-Will continue to monitor clinically, continue with home CAD regimen as below
#Abdominal pain
-CT scan without any acute findings, did show signs of cholelithiasis
-On exam no signs of acute abdomen, seems soft and nontender
-As of this morning has no complaints of abdominal pain
-Remains on bowel regimen empirically
#Chronic HFpEF
-Per history, no TTE on record; GDMT with SGLT2i, not currently on MRA for unclear reason
-Loop diuretic regimen of 40 mg Lasix daily; also on carvedilol for afterload reduction
-Appears euvolemic at this time on current regimen
#CAD s/p CABG
#HLD
-Home medications include carvedilol, high intensity statin, DAPT with aspirin and Brilinta
-Also currently on SGLT2 inhibitor which has benefits and CAD
-No signs of active coronary ischemia at this time
#Insulin-dependent type 2 diabetes this mellitus
-Last hemoglobin A1c 7.2%; C/B diabetic neuropathy
-Current regimen includes Humulin, metformin, gabapentin for neuropathy
-Will hold metformin, transition to sliding scale with Accu-Cheks
-He blood glucose goal 160-200 while in the hospital
#Hypertension
-No known hypertensive systemic disease
-Home medications include carvedilol as first-line and agent
-Blood pressure currently well-controlled
#Anxiety/depression
-Stable on current sertraline read
#BPH
-Stable on tamsulosin 0.4 mg
#vitamin B12 deficient
-Outpatient records show chronic vitamin B12 oral supplement
-Possibly related to chronic metformin use
#History of CVA with residual expressive aphasia
-CVA occurred in April to May, no history of AF, seems related to cerebrovascular disease
-Current regimen includes high intensity statin, and DAPT
-No new focal deficits at this time
DVT prophylaxis: Lovenox
Diet: Regular
CODE STATUS: DNR per patient's son (primary wellfield technician)
Anticipated Discharge: Within 24 hours
Subjective/Interval History
-
Date of Service: August 10, 2024
Seen and examined at the bedside. No acute events overnight. AFVSS this morning.
He mentions some lower abdominal discomfort and constipation.
History is difficult to obtain due to his baseline expressive aphasia
Objective Data
-
Labs:
Laboratory Results
08/10/24
05:54
WBC 6.7
Hgb 12.3 L
Hct 37.1 L
Plt Count 169
Sodium 143
Potassium 3.9
Chloride 102
Carbon Dioxide 28
BUN 19
Creatinine 0.9
Glucose 95
Calcium 9.0
Vital Signs:
Vital Signs
Temp Pulse Resp BP Pulse Ox
98.3 F 75 16 137/70 96
08/10/24 11:24 08/10/24 11:24 08/10/24 11:24 08/10/24 11:24 08/10/24 11:24
I&O
08/09/24 08/10/24 08/11/24
06:59 06:59 06:59
Intake Total 120 / 120 1000 / 1000
Output Total 200 / 200
Balance 120 / 120 800 / 800
Review of Systems
-
Unable to obtain full review of systems at this time due to: Other (Expressive aphasia)
Physical Exam
-
General: Well Nourished, No Apparent Distress and Comfortable
HEENT: Normocephalic, Atraumatic, Moist Mucous Membranes and Anicteric
Respiratory: Clear to Auscultation and Non Labored Respirations; Negative Wheezes, Rales or Rhonchi
Cardiac: Regular Rhythm and S1/S2; Negative Murmur, Rub or Gallop
GI: Soft, Nontender, Nondistended and Normal Bowel Sounds
Musculoskeletal: No Clubbing, No Cyanosis and No Edema
Skin: Warm and Dry; Negative Rash
Neuro: AO x 3, Nonfocal/Grossly Intact, Central Nerve's Intact and Other (Chronic expressive aphasia)
Data Reviewed
-
Labs: Labs Reviewed by me and Discussed with Patient
[2024-08-10] MEDS: MIRALAX 17 GRAMS PO (12:38)
[2024-08-10 16:03] LABS: Glucose - Point of Care 218 mg/dl (70-99)
[2024-08-10] MEDS: NOVOLOG FLEXPEN-MODERATE RESISTANCE 3 UNITS SC (16:31)
[2024-08-10] MEDS: MAGNESIUM OXIDE 500 MG PO (17:35)
[2024-08-10] MEDS: LIPITOR 40 MG PO (17:36)
[2024-08-10] MEDS: LOVENOX 40 MG SC (17:36)
[2024-08-10 21:05] LABS: Glucose - Point of Care 151 mg/dl (70-99)
[2024-08-10] MEDS: HUMULIN R U-500 (CONCENTRATED) 10 UNITS SC (21:19)
[2024-08-11 02:56] VITALS: BP 138/81
[2024-08-11 06:00] VITALS: BMI 28.4
[2024-08-11 07:15] VITALS: BP 124/61
[2024-08-11 07:24] LABS: % Basophils 0.6 % (0-2); % Immature Granulocytes 0.1 % (0-0.5); % Lymphocytes 29.3 % (20.5-51.1); Absolute Eosinophils 0.5 10^3/uL (0-0.7); Absolute Monocytes 0.7 10^3/uL (0.1-0.6); Absolute Neutrophils 3.5 10^3/uL (1.4-6.5); Hematocrit 38.4 % (39.0-52.0); Hemoglobin 12.7 g/dL (13.0-18.0); Mean Corp Hgb Conc. 33.1 g/dL (33.0-37.0); Mean Corpuscular Volume 90.8 fL (80.0-94.0); Nucleated Red Blood Cells % 0 % (-); Platelet Count 161 10^3/uL (130-400); Red Blood Cell Count 4.23 10^6/uL (4.70-6.10); Red Cell Dist. Width 13.7 % (11.5-14.5); White Blood Cell Count 6.8 10^3/uL (4.8-10.8)
[2024-08-11 07:50] LABS: Glucose - Point of Care 123 mg/dl (70-99)
[2024-08-11 07:51] LABS: Blood Urea Nitrogen 15 mg/dl (9-20); Calcium 8.9 mg/dl (8.4-10.2); Carbon Dioxide 28 mmol/L (22-30); Chloride 102 mmol/L (98-107); Estimated Creatinine Clearance 67 ml/min; Glucose 129 mg/dl (70-99); Potassium 3.7 mmol/L (3.5-5.1); Sodium 142 mmol/L (135-145); eGFR > 60.00
[2024-08-11] MEDS: NOVOLOG FLEXPEN-MODERATE RESISTANCE SC (08:03)
[2024-08-11] MEDS: BRILINTA 60 MG PO (08:28)
[2024-08-11] MEDS: FLOMAX 0.4 MG PO (08:28)
[2024-08-11] MEDS: NEURONTIN 100 MG PO (08:28)
[2024-08-11] MEDS: SENOKOT-S 1 TABLET PO (08:28)
[2024-08-11] MEDS: VITAMIN B-12 1000 MCG PO (08:28)
[2024-08-11] MEDS: COREG 3.125 MG PO (08:28)
[2024-08-11] MEDS: LASIX 40 MG PO (08:28)
[2024-08-11] MEDS: FARXIGA 10 MG PO (08:28)
[2024-08-11] MEDS: ZOLOFT 25 MG PO (08:28)
[2024-08-11] MEDS: ASPIR LOW (ENTERIC COATED) 81 MG PO (08:28)
[2024-08-11] MEDS: PROTONIX 40 MG PO (08:28)
[2024-08-11] MEDS: KCL 40 MEQ PO (09:07)
[2024-08-11 11:24] VITALS: BP 111/56
--- NOTE | 2024-08-11 11:57 | W.PN.HOSP.TC ---
Today's Communication/Plan
-
Discharge planning
Assessment / Plan
Assessment / Plan
#Acute viral bronchitis
-Presented with SpO2 87%, CXR showing signs of right basilar pneumonia; No leukocytosis or fevers reported, procalcitonin negative
-Received 1 dose of antibiotics for community-acquired pneumonia on an empiric basis with CTX and azithromycin
-On exam he does have very rhonchorous findings throughout lung cobos, only required oxygen brief
-Was started on antibiotics for short course, discontinued on 08/09
-Stable on room air for multiple days off of antibiotics
-Very likely this was a viral process, with rhonchi suspect bronchitis
#Elevated serum troponin
-Yesterday he had intermittent/transient chest pain with a mildly elevated troponin x 3, flat trend
-Suspect that this is a type II demand ischemic event in the context of his hypoxemia and possible infection
-Troponin trend was not consistent with ACS; ECG without any new ischemic findings, similar to previous scans
-Remains on home regimen for CAD
#Abdominal pain
-CT scan without any acute findings, did show signs of cholelithiasis
-On exam no signs of acute abdomen, seems soft and nontender
-As of this morning has no complaints of abdominal pain
-Remains on bowel regimen empirically
#Chronic HFpEF
-Per history, no TTE on record; GDMT with SGLT2i, not currently on MRA for unclear reason
-Loop diuretic regimen of 40 mg Lasix daily; also on carvedilol for afterload reduction
-Appears euvolemic at this time on current regimen
#CAD s/p CABG
#HLD
-Home medications include carvedilol, high intensity statin, DAPT with aspirin and Brilinta
-Also currently on SGLT2 inhibitor which has benefits and CAD
-No signs of active coronary ischemia at this time
#Insulin-dependent type 2 diabetes this mellitus
-Last hemoglobin A1c 7.2%; C/B diabetic neuropathy
-Current regimen includes Humulin, metformin, gabapentin for neuropathy
-Will hold metformin, transition to sliding scale with Accu-Cheks
-He blood glucose goal 160-200 while in the hospital
#Hypertension
-No known hypertensive systemic disease
-Home medications include carvedilol as first-line and agent
-Blood pressure currently well-controlled
#Anxiety/depression
-Stable on current sertraline read
#BPH
-Stable on tamsulosin 0.4 mg
#vitamin B12 deficient
-Outpatient records show chronic vitamin B12 oral supplement
-Possibly related to chronic metformin use
#History of CVA with residual expressive aphasia
-CVA occurred in April to May, no history of AF, seems related to cerebrovascular disease
-Current regimen includes high intensity statin, and DAPT
-No new focal deficits at this time
DVT prophylaxis: Lovenox
Diet: Regular
CODE STATUS: DNR per patient's son (primary brim stitcher)
Anticipated Discharge: Today
Subjective/Interval History
-
Date of Service: August 11, 2024
Seen and examined at the bedside. No acute events overnight. AFVSS this morning.
Continues to have no fevers or leukocytosis, suspicion for bacterial infection very low. Has been stable off antibiotics.
He denies any acute complaints, full history is difficult from his expressive aphasia at baseline
Objective Data
-
Labs:
Laboratory Results
08/11/24
06:05
WBC 6.8
Hgb 12.7 L
Hct 38.4 L
Plt Count 161
Sodium 142
Potassium 3.7
Chloride 102
Carbon Dioxide 28
BUN 15
Creatinine 1.0
Glucose 129 H
Calcium 8.9
Vital Signs:
Vital Signs
Temp Pulse Resp BP Pulse Ox
98.7 F 72 20 111/56 94
08/11/24 11:24 08/11/24 11:24 08/11/24 11:24 08/11/24 11:24 08/11/24 11:24
I&O
08/10/24 08/11/24 08/12/24
06:59 06:59 06:59
Intake Total 1000 / 1000 0 / 0
Output Total 200 / 200
Balance 800 / 800 0 / 0
Review of Systems
-
Unable to obtain full review of systems at this time due to: Other (Baseline expressive aphasia)
Physical Exam
-
General: Well Nourished, No Apparent Distress and Comfortable
HEENT: Normocephalic, Atraumatic and Moist Mucous Membranes
Respiratory: Clear to Auscultation and Non Labored Respirations; Negative Wheezes, Rales or Rhonchi
Cardiac: Regular Rhythm and S1/S2; Negative Murmur, Rub or Gallop
GI: Soft, Nontender, Nondistended and Normal Bowel Sounds
Musculoskeletal: No Clubbing, No Cyanosis and No Edema
Skin: Warm and Dry; Negative Rash
Neuro: AO x 3, Nonfocal/Grossly Intact and Central Nerve's Intact
Data Reviewed
-
Labs: Labs Reviewed by me and Discussed with Patient
--- NOTE | 2024-08-11 12:03 | W.DCSUMMARY ---
Discharge Summary
Discharge Data
Date of Admission: 08/08/24
Date of Discharge: 08/11/24
-
Pending Results: No
Hospital Course
74-year-old male with HFpEF, CAD s/p CABG, IDDM, HTN, HLD, B12 deficiency, H/O CVA (April 2024, C/B expressive aphasia) that presented to the hospital initially for complaint of persistent cough, new hypoxemia. Upon arrival had oxygen saturation in
the high 80s on room air which improved with 1 to 2 L of supplemental oxygen. Initial x-ray showed possible signs of early consolidation in the right lower lobe. Was started on IV ceftriaxone and azithromycin in the ED empirically. On examination
he had significant rhonchi. Concern for aspiration, was evaluated by speech and swallow and had video swallow exam performed in the hospital without signs of significant aspiration. Procalcitonin was negative. Was de-escalated off of supplemental
oxygen rapidly.
Suspicion ultimately high for viral bronchitis as etiology for his cough transient hypoxemia, possible degree of aspiration from coughing. He was monitored off antibiotics for multiple days while in the hospital and had no signs of infection or
worsening respiratory status. Temperature remained afebrile over the hospitalization, white cell count was WNL from time of admission through discharge.
Should follow-up with primary care doctor within 7 days of discharge for routine hospital follow-up
Of note, he did have 2 blood glucose readings of <80 during the morning 1 in the hospital. His home dose long-acting insulin was reduced from 30 units nightly to 10 units nightly.
Discharge Plan
-
Patient Disposition: Home (Routine Discharge)
Discharge Diagnosis/Procedures: Hypoxemia
Suspected acute viral bronchitis
Condition: Good
Diet: No restrictions
Activity: As tolerated
Driving Restrictions: Not until seen by your Dr
Bathing Restrictions: None
Blood Work: None required
Others Tests: None required
Other Services: PT and OT
Activity Restrictions/Additional Instructions:
Wound Care Instructions
Gluteal cleft: after washing with soap and water apply barrier cream daily and prn stool.
Air chair cushion when sitting, can take upon discharge.
Instructions: Acute bronchitis
Referrals:
Monalisa Solis, [Family Provider] -
Additional Discharge Medication Instructions: Decreased long-acting insulin to 10 units nightly
Start pantoprazole 40 mg daily
Prescriptions:
New
Humulin R U-500 (Conc) Kwikpen 500 unit/mL (3 mL) Insulin Pen
10 unit SC HS 30 Days Qty: 6 0RF
pantoprazole 40 mg Tablet,Delayed Release (Dr/Ec)
40 mg PO DAILY 30 Days Qty: 30 0RF
Continued
aspirin 81 MG tablet,delayed release (DR/EC)
81 mg PO DAILY
metformin 1,000 MG tablet
1,000 mg PO BID@0800,1700
furosemide 40 mg tablet
40 mg PO DAILY
magnesium oxide 400 mg (241.3 mg magnesium) tablet
400 mg PO QPM
atorvastatin [Lipitor] 40 mg Tablet
40 mg PO QPM
tamsulosin [Flomax] 0.4 mg Capsule
0.4 mg PO DAILY
cyanocobalamin (vitamin B-12) 1,000 mcg Tablet
1,000 mcg PO DAILY
carvedilol [Coreg] 3.125 mg Tablet
3.125 mg PO BID
sertraline 25 mg Tablet
25 mg PO DAILY
gabapentin 100 mg Capsule
100 mg PO BID
dapagliflozin propanediol [Farxiga] 10 mg Tablet
10 mg PO DAILY
Brilinta 60 mg Tablet
60 mg PO BID
Discontinued
Humulin R U-500 (Conc) Kwikpen 500 UNITS/ML insulin pen
30 units SC HS
Discharge Orders:
Discharge Patient (As Directed); Ordered 08/11/24
Ordered By: Galileo Connor
Discharge Date and Time
Print Language: GIBRALTARIAN
[2024-08-11 12:10] LABS: Glucose - Point of Care 164 mg/dl (70-99)
[2024-08-11] MEDS: NOVOLOG FLEXPEN-MODERATE RESISTANCE 1 UNITS SC (12:33)
--- NOTE | 2024-08-11 14:40 | CM ---
MD entered order for discharge.
Palliative care set up already MD saw in room.
Spoke with umberto Johns Gave them caregiver list. Reviewed IMM with umberto Johns he agrees with dc. IMM on chart.
Son requested Maximiliano CHOU spoke with [facility] Referral made
PLAN Home with son . Maximiliano CHOU fax [phone]
[2024-08-11 15:10] VITALS: BP 101/43
[2024-08-11 16:59] LABS: Glucose - Point of Care 254 mg/dl (70-99)
== END 2024-08-11 17:23 | disposition home or self-care (01) | DRG 202 ==
LOC: 4 EAST ACU 12:15
PROVIDERS: Physician Assistant; ADMITTING PHYSICIAN Internal Medicine; EMERGENCY PHYSICIAN Emergency Medicine; FAMILY PHYSICIAN Family Medicine; OTHER PHYSICIAN Nurse Practitioner Gerontology
DX: J20.8 Acute bronchitis due to other specified organisms (principal); I21.A1 Myocardial infarction type 2; I50.32 Chronic diastolic (congestive) heart failure; E11.40 Type 2 diabetes mellitus with diabetic neuropathy, unspecified; I11.0 Hypertensive heart disease with heart failure; F32.A Depression, unspecified; I69.320 Aphasia following cerebral infarction; Z51.5 Encounter for palliative care; Z66 Do not resuscitate; I25.10 Atherosclerotic heart disease of native coronary artery without angina pectoris; Z95.1 Presence of aortocoronary bypass graft; E53.8 Deficiency of other specified B group vitamins; E78.00 Pure hypercholesterolemia, unspecified; F41.9 Anxiety disorder, unspecified; K21.9 Gastro-esophageal reflux disease without esophagitis; K59.00 Constipation, unspecified; N40.0 Benign prostatic hyperplasia without lower urinary tract symptoms; R09.02 Hypoxemia; R26.2 Difficulty in walking, not elsewhere classified; R41.3 Other amnesia; Z79.4 Long term (current) use of insulin; Z79.84 Long term (current) use of oral hypoglycemic drugs
CPT/HCPCS: 71046; 74177; 74230; 80048; 80053; 82248; 82962; 83605; 83690; 83735; 84145; 84484; 85025; 87811; 92610; 92611; 93005; 96365; 96375; 97116; 97163; 97167; 97530; 99285; Q9967